=== PATIENT | male | born 1950 | race Caucasian/White ===

== ENCOUNTER 2023-11-28 19:26 | Emergency (ER) | payer MEDICARE ==
[2023-11-28] VITALS (14 sets, daily range): BP systolic 89–117; BP diastolic 48–60
[~2023-11-28] VITALS: Ht 167.6 cm; Wt 83.9 kg
[2023-11-28] MEDS ORDERED: SODIUM CHLORIDE 0.9% 1,000 ML IV ONE ×3 (19:40→21:00)
[2023-11-28 20:23] LABS: BASO% 0.2 % (0-3); EOS% 4.4 % (0-8); HEMATOCRIT 33.2 % (39.0-50.0); HEMOGLOBIN 9.6 g/dl (14.0-18.0); IMMATURE GRANULOCYTES 2.1 % (0.0-5.0); MEAN CELL VOLUME 84.3 fL CALC (80.0-100.0); MEAN CORPUSCULAR HGB 24.4 pG CALC (26.0-32.0); MEAN CORPUSCULAR HGB CONC 28.9 g/dL CAL (32.0-36.0); MONO% 6.2 % (2-13); NEUT# 12.45 thou/uL (1.82-7.42); NEUT% 69.5 % (42-76); RED BLOOD COUNT 3.94 mill/uL (4.70-6.10); RED CELL DISTRI WIDTH 18.5 % (11.5-15.5)
[2023-11-28 20:36] LABS: ALBUMIN 3.3 g/dL (3.2-5.0); BILIRUBIN, TOTAL 0.9 mg/dL (0.2-1.3); CREATININE 2.3 mg/dL (0.7-1.3); POTASSIUM 4.3 mmol/l (3.5-5.1); TOTAL PROTEIN 6.2 g/dL (6.3-8.2)
[2023-11-28 20:39] LABS: D-DIMER 1.9 mg/L (0.19-0.60)
[2023-11-28 20:48] LABS: URINE BILIRUBIN - DIPSTICK Negative (NEGATIVE); URINE BLOOD DIPSTICK Small (NEGATIVE); URINE GLUCOSE - DIPSTICK >=1000 mg/dL (NEGATIVE); URINE KETONE Negative (NEGATIVE); URINE LEUK ESTERASE Trace (NEGATIVE); URINE NITRITE - DIPSTICK Negative (Negative); URINE PROTEIN - DIPSTICK 100 mg/dL (NEG-TRACE); URINE UROBILINOGEN - DIPSTICK 0.2 E.U./dL (0.2)
[2023-11-28 20:49] LABS: URINE COLOR Yellow
[2023-11-28 20:50] LABS: URINE CASTS RARE lpf (NONE-RARE)
[2023-11-28 20:53] LABS: LYMPH% 17.6 % (15-41)
[2023-11-28] MEDS ORDERED: ASPIRIN 81 MG/TAB PO ONE (21:00)
[2023-11-28] MEDS ORDERED: PIPERACILLIN Sodium-Tazobactam 4.5 GM in SODIUM CHLORIDE 0.9% 100 ML IV ONE (21:05)
[2023-11-28] MEDS ORDERED: VANCOMYCIN HCL 1 GM in SODIUM CHLORIDE 0.9% 250 ML IV ONE (21:05)
[2023-11-28] MEDS ORDERED: WARFARIN SODIUM1 MG PO (23:04)
[2023-11-28] MEDS ORDERED: D2000 ULTRA2000 UNIT (23:04)
[2023-11-28] MEDS ORDERED: TORSEMIDE20 M1 PO (23:04)
[2023-11-28] MEDS ORDERED: GLIMEPIRIDE2 MG PO (23:05)
[2023-11-28] MEDS ORDERED: CRESTOR20 MG PO (23:05)
[2023-11-28] MEDS ORDERED: TOPROL XL25 M1 PO (23:06)
[2023-11-28] MEDS ORDERED: JANTOVEN5 MG PO (23:06)
[2023-11-28] MEDS ORDERED: ISOSORBIDE DINI30 MG PO (23:06)
[2023-11-28] MEDS ORDERED: JARDIANCE25 MG PO (23:07)
[2023-11-28] MEDS ORDERED: SOAANZ40 MG PO (23:07)
[2023-11-28] MEDS ORDERED: PROCHLORPERAZINE5 M1 PO (23:08)
[2023-11-28] MEDS ORDERED: ONDANSETRON ODT8 MG PO (23:08)
[2023-11-28] MEDS ORDERED: EMPLICITI300 MG (23:09)
[2023-11-28] MEDS ORDERED: POMALYST4 MG (23:10)
[2023-11-28] MEDS ORDERED: DECADRON4 MG PO (23:10)
== END 2023-11-28 23:30 | disposition short-term general hospital (02) ==
LOC: ED 19:26
PROVIDERS: Family Medicine
DX: A41.9 Sepsis, unspecified organism (principal); J18.9 Pneumonia, unspecified organism; I21.4 Non-ST elevation (NSTEMI) myocardial infarction; I25.10 Atherosclerotic heart disease of native coronary artery without angina pectoris; I48.91 Unspecified atrial fibrillation; Z20.822 Contact with and (suspected) exposure to COVID-19; Z86.718 Personal history of other venous thrombosis and embolism; C34.90 Malignant neoplasm of unspecified part of unspecified bronchus or lung